=== PATIENT | female | born 1975 | race American Indian/Alaskan Native ===

== ENCOUNTER 2017-10-25 21:24 | Emergency (ER) | payer SELFPAY ==
[2017-10-25] MEDS ORDERED: MOTRIN PO ONE (22:42)
--- NOTE | 2017-10-26 00:30 | Emergency Department Report ---
ED Back Pain/Injury HPI - General Chief Complaint: Extremity Injury, Lower Stated Complaint: RIGHT HIP,LEG PAIN Time Seen by Provider: 10/26/17 00:20 Source: patient, family Mode of arrival: Ambulatory Limitations: No Limitations - History of Present Illness Initial Comments: This is a 41-year-old female here reports that she's been having back pain radiating into her right hip 2 days. She's had similar incident in the past. She denies any injury. Denies any urinary burning, frequency or urgency. Denies any blood in her urine. Denies any nausea or vomiting. Denies any abdominal pain. LMP 10/30/2017. Denies any loss of bowel or bladder function. Denies any numbness or tingling to extremities. Pain is 10/10 achy. No medication taken. Pain is worse with movement and no alleviating factors. Patient has a history of -induced hypertension, and gestational diabetes. MD Complaint: back pain Onset/Timin -: days(s) Similar Symptoms Previously: Yes Place: home Radiation: right leg (right hip, buttocks and leg) Severity: severe Severity scale (0 -10): 10 Quality: aching Consistency: constant Improves With: none Worsens With: movement, walking Context: other (history of back pain) Associated Symptoms: denies: confusion, weakness, chest pain, numbness, difficulty walking, cough, difficulty urinating, diaphoresis, incontinence, fever/chills, constipation, headaches, abdominal pain, loss of appetite, malaise , nausea/vomiting, rash, seizure, shortness of breath, syncope Treatments Prior to Arrival: other (none) - Related Data Home Medications Medication Instructions Recorded Confirmed Last Taken Acetaminophen [Tylenol] 325 mg PO PRN 09/20/13 09/20/13 09/20/13 Previous Rx's Medication Instructions Recorded Last Taken Type Cephalexin [Keflex] 500 mg PO Q6H #40 capsule 09/20/13 Unknown Rx HYDROcodone/APAP 5-325 [Odanah 1 each PO Q6HR PRN #20 tablet 08/18/14 Unknown Rx 5-325 mg TAB] Ibuprofen [Motrin 600 MG tab] 600 mg PO Q8H PRN #20 tablet 08/18/14 Unknown Rx traMADol [Ultram] 50 mg PO Q6HR PRN #20 tablet 10/26/17 Unknown Rx Allergies Allergy/AdvReac Type Severity Reaction Status Date / Time No Known Allergies Allergy Verified 08/18/14 09:54 ED Review of Systems ROS: Stated complaint: RIGHT HIP,LEG PAIN Other details as noted in HPI Constitutional: denies: chills, fever Eyes: denies: eye pain, eye discharge, vision change Respiratory: denies: cough, shortness of breath, SOB with exertion, SOB at rest , wheezing Cardiovascular: denies: chest pain, palpitations, edema, syncope Gastrointestinal: denies: abdominal pain, nausea, vomiting, diarrhea Genitourinary: denies: urgency, dysuria, hematuria, discharge Musculoskeletal: back pain, arthralgia. denies: joint swelling, myalgia Skin: denies: rash, lesions Neurological: denies: headache, weakness, numbness, paresthesias, confusion, abnormal gait, vertigo ED Past Medical Hx - Past Medical History Previous Medical History?: Yes Hx Hypertension: Yes (PIH) Hx Diabetes: Yes (gestational DM) Hx Psychiatric Treatment: Yes (ANXIETY) Additional medical history: denies - Surgical History Past Surgical History?: No Additional Surgical History: denies - Family History Family history: hypertension - Social History Smoking Status: Never Smoker Substance Use Type: None - Medications Home Medications: Home Medications Medication Instructions Recorded Confirmed Last Taken Type Acetaminophen [Tylenol] 325 mg PO PRN 09/20/13 09/20/13 09/20/13 History Cephalexin [Keflex] 500 mg PO Q6H #40 capsule 09/20/13 Unknown Rx HYDROcodone/APAP 5-325 [Odanah 1 each PO Q6HR PRN #20 tablet 08/18/14 Unknown Rx 5-325 mg TAB] Ibuprofen [Motrin 600 MG tab] 600 mg PO Q8H PRN #20 tablet 08/18/14 Unknown Rx traMADol [Ultram] 50 mg PO Q6HR PRN #20 tablet 10/26/17 Unknown Rx ED Physical Exam - General Limitations: No Limitations General appearance: alert, in no apparent distress - Head Head exam: Present: atraumatic, normocephalic, normal inspection - Eye Eye exam: Present: normal appearance, PERRL, EOMI Pupils: Present: normal accommodation - ENT ENT exam: Present: normal exam, normal orophraynx, mucous membranes moist - Neck Neck exam: Present: normal inspection, full ROM, other (no C-spine tenderness). Absent: tenderness, lymphadenopathy - Respiratory Respiratory exam: Present: normal lung sounds bilaterally. Absent: respiratory distress, chest wall tenderness - Cardiovascular Cardiovascular Exam: Present: regular rate, normal rhythm, normal heart sounds. Absent: systolic murmur, diastolic murmur - GI/Abdominal GI/Abdominal exam: Present: soft, normal bowel sounds. Absent: distended, tenderness, rigid, organomegaly, bruit - Extremities Exam Extremities exam: Present: normal inspection, full ROM, normal capillary refill , other (no clubbing, cyanosis or edema. +2 pulses to all extremities and no neurovascular compromise.). Absent: tenderness, pedal edema, joint swelling, calf tenderness - Back Exam Back exam: Present: normal inspection, full ROM, other (ambulates without any difficulties.). Absent: tenderness, CVA tenderness (R), CVA tenderness (L), muscle spasm, paraspinal tenderness, vertebral tenderness, rash noted - Expanded Back Exam Expanded Back exam: Absent: saddle anesthesia Back exam: Negative Straight Leg Raising: Left, Right - Neurological Exam Neurological exam: Present: alert, oriented X3, normal gait, reflexes normal. Absent: motor sensory deficit - Expanded Neurological Exam Expanded Neurological exam: Absent: innattentive, memory loss-remote event, memory loss- recent event, ataxia, receptive aphasia, expressive aphasia, total aphasia, tremor, protecting the airway Patient oriented to: Present: person, place, time Speech: Present: fluid speech Cranial nerves: EOM's Intact: Normal, Gag Reflex: Normal, Tongue Deviation: Normal, Nystagmus: Normal, Facial Sensation: Normal Cerebellar function: Romberg: Normal Upper motor neuron: Pronator Drift: Normal, Sensory Extinction: Normal Sensory exam: Upper Extremity Light Touch: Normal, Upper Extremity Pin Prick: Normal, Upper Extremity Temperature: Normal, UE 2 Point Discrimination: Normal, Lower Extremity Light Touch: Normal, Lower Extremity Pin Prick: Normal Motor strength exam: RUE: 5, LUE: 5, RLE: 5, LLE: 5 Best Eye Response (Gordo): (4) open spontaneously Best Motor Response (Gordo): (6) obeys commands Best Verbal Response (Gordo): (5) oriented [place] Total: 15 - Psychiatric Psychiatric exam: Present: normal affect, normal mood - Skin Skin exam: Present: warm, dry, intact, normal color. Absent: rash ED Course Vital Signs 10/25/17 21:30 Temperature 98.2 F Pulse Rate 91 H Respiratory 18 Rate Blood Pressure 122/79 O2 Sat by Pulse 93 Oximetry - Reevaluation(s) Reevaluation #1: 10/26/17 00:30 Patient received ibuprofen 800 mg in triage her first did not relieve her back pain. I will give her decadron, Toradol and Odanah. Reevaluation #2: 10/26/17 01:13 Patient received Odanah 5/2 tablets by mouth, Toradol 30 mg IM and Decadron 10 mg IM and she voiced relief of pain down to 2 out of 10. ED Medical Decision Making - Lab Data Lab Results 10/26/17 Range/Units Unknown Urine Color Yellow (Yellow) Urine Turbidity Clear (Clear) Urine pH 5.0 (5.0-7.0) Ur Specific [place] 1.027 (1.003-1.030) Urine Protein <15 mg/dl (Negative) mg/dL Urine Glucose (UA) Neg (Negative) mg/dL Urine Ketones Neg (Negative) mg/dL Urine Blood Neg (Negative) Urine Nitrite Neg (Negative) Urine Bilirubin Neg (Negative) Urine Urobilinogen 2.0 (<2.0) mg/dL Ur Leukocyte Esterase Neg (Negative) Urine WBC (Auto) 2.0 (0.0-6.0) /HPF Urine RBC (Auto) 2.0 (0.0-6.0) /HPF U Epithel Cells (Auto) < 1.0 (0-13.0) /HPF Urine Mucus 3+ /HPF - Radiology Data Radiology results: report reviewed X-rays lumbar spine and pelvis dictated by radiologist and report reviewed by myself. See below for details. Patient: CARLOS JACKSON MR#: [id number] : 1975 Acct:[id number] Age/Sex: 41 / F ADM Date: 10/25/17 Loc: ED Attending Dr: Ordering Physician: RIN VILLLEA MD Date of Service: 10/25/17 Procedure(s): XR spine lumbosacral 2-3V Accession Number(s): [id number] cc: RIN VILLELA MD Fluoro Time In Minutes: FINAL REPORT EXAM: XR L-SPINE CLINICAL INDICATIONS: LOWER BACK PAIN FINDINGS: 3 views of the lumbar spine. No prior radiographs. Degenerative changes of the lumbar spine with narrowing of the L4-L5 and L5-S1 intervertebral disc spaces. Degenerative changes of the lower thoracic spine with large anterior osteophytes at T11-T12. No compression deformity. No spondylolisthesis. IMPRESSION: DEGENERATIVE CHANGES OF THE LOWER THORACIC AND LUMBAR SPINE WITH NARROWING OF THE L4-L5 AND L5-S1 INTERVERTEBRAL DISC SPACES. Transcribed By: CHRISTELLE Dictated By: TAMMY HAJI MD Electronically Authenticated By: TAMMY HAJI MD Signed Date/Time: 10/26/1751 DD/ TD/TT: 10/26/1751 Patient: CARLOS JACKSON MR#: [id number] : 1975 Acct:[id number] Age/Sex: 38 / F ADM Date: 08/18/14 Loc: ED Attending Dr: Ordering Physician: GISSELLE RAJPUT MD Date of Service: 08/18/14 Procedure(s): XR pelvis 1 or 2V Accession Number(s): [id number] cc: GISSELLE RAJPUT MD Fluoro Time In Minutes: AP PELVIS: AP view of the pelvis shows normal pelvic contour and soft tissues. The hips are symmetric and within normal limits as are the sacroiliac joints. IMPRESSION: Normal pelvis. Transcribed By: UMM Dictated By: IQRA GILES MD Electronically Authenticated By: IQRA GILES MD Signed Date/Time: 08/18/141599 DD/ 58 TD/TT: 08/18/14 1600 - Medical Decision Making This is a 41-year-old female who reports that she's been having lower back pain with radiation of pain to her right lower extremity. She's had similar incident in the past. Patient has been here in the past for similar incident and she had previous imaging done of thoracic spine and C-spine. Physical findings for normal back and neurological exam. She is able to ambulate without any difficulties. Patient and had x-ray of lumbar spine and pelvis and this was dictated by radiologist. No acute findings per radiology reports. Patient has degenerative changes to lower thoracic and lumbar spine area. Urinalysis with normal findings. Pain is controlled with pain medication. I discussed the patient her results of urinalysis and x-rays and she voiced understanding. Patient was given Decadron 10 mg IM, Toradol 30 mg IM, Odanah 5/55 2 tablets by mouth for lumbar radiculopathy and she voiced relief of pain down to 2/10. Patient with right lumbar radiculopathy, multilevel degenerative disc disease. Educated on diagnosis, treatment plan, x-ray results and laboratory findings she voiced understanding. Referral to [facility] for primary care she does not have a primary care physician and orthopedics doctor follow-up in 2-3 days. patient discharged home in stable condition, vital signs are stable she's afebrile and pain is relieved. She voiced understanding and discharge instruction and treatment plan and that she is to follow-up with orthopedic and [facility] in 2-3 days. Discharged with prescription for Ultram I also discussed with her for symptoms as return and worsens not managed by pain medication to return to the emergency room. - Differential Diagnosis subluxation, fracture, degenerative disc disease, lumbar radiculopathy Critical care attestation.: If time is entered above; I have spent that time in minutes in the direct care of this critically ill patient, excluding procedure time. ED Disposition Clinical Impression: Lumbar radiculopathy, right, Multilevel degenerative disc disease Disposition: - TO HOME OR SELFCARE Is pt being admited?: No Does the pt Need Aspirin: No Condition: Stable Instructions: Lumbar Radiculopathy (ED), Degenerative Disc Disease (ED) Additional Instructions: Follow-up with orthopedic doctor and primary care doctor as instructed and 2-3 days Take Ultram for pain but he is a not drive or operate heavy machinery while taking this medication If his symptoms return, or worsens return to emergency room Prescriptions: traMADol [Ultram] 50 mg PO Q6HR PRN #20 tablet PRN Reason: Pain Referrals: [facility] [Outside] - 2-3 Days IQRA GUTIERREZ MD [Staff Physician] - 2-3 Days Forms: Work/School Release Form(ED)
[2017-10-26] MEDS ORDERED: DECADRON IM STA (00:31)
[2017-10-26] MEDS ORDERED: TORADOL IM ONE (00:31)
[2017-10-26] MEDS ORDERED: NORCO 5/325 PO ONE (00:31)
--- NOTE | 2017-10-26 00:50 | XRay Report ---
FINAL REPORT EXAM: XR RT HIP w/o Contrast CLINICAL INDICATIONS: RT HIP PAIN FINDINGS: AP pelvis and right hip. No prior radiographs. No acute fracture or dislocation. Hips are symmetric in appearance. The joint spaces are preserved. The pubic rami are intact. Sacral foramina are not disrupted. Tiny corticated bony fragment bordering the acetabulum, likely accessory ossicle. IMPRESSION: NORMAL RADIOGRAPHIC APPEARANCE OF THE RIGHT HIP WITH PROBABLE TINY ACCESSORY OSSICLE BORDERING THE ACETABULUM.
--- NOTE | 2017-10-26 00:57 | XRay Report ---
FINAL REPORT EXAM: XR L-SPINE CLINICAL INDICATIONS: LOWER BACK PAIN FINDINGS: 3 views of the lumbar spine. No prior radiographs. Degenerative changes of the lumbar spine with narrowing of the L4-L5 and L5-S1 intervertebral disc spaces. Degenerative changes of the lower thoracic spine with large anterior osteophytes at T11-T12. No compression deformity. No spondylolisthesis. IMPRESSION: DEGENERATIVE CHANGES OF THE LOWER THORACIC AND LUMBAR SPINE WITH NARROWING OF THE L4-L5 AND L5-S1 INTERVERTEBRAL DISC SPACES.
[2017-10-26 01:32] LABS: Bilirubin,Urine NEG (Negative); Blood,Urine NEG (Negative); Color,Urine Yellow (Yellow); Mucus,Urine 3+ /HPF; Protein,Urine <15 mg/dL mg/dL (Negative)
[2017-10-26 02:08] VITALS: BP 122/89
== END 2017-10-26 02:10 | disposition home or self-care (01) ==
LOC: ED 21:24
DX: M51.36 Other intervertebral disc degeneration, lumbar region (principal); M54.16 Radiculopathy, lumbar region; I10 Essential (primary) hypertension; F41.9 Anxiety disorder, unspecified
CPT/HCPCS: 72100; 73502; 81001; 96372; 99283; J1100; J1885

== ENCOUNTER 2019-10-29 11:45 | Emergency (ER) | payer SELFPAY ==
--- NOTE | 2019-10-29 13:09 | Event Note ---
ED Screening Note ED Screening Note: 43-year-old female sent emerge department with a 4-day history of general abdominal pain with no diarrhea no constipation. However she has had some nausea and vomiting. Reports no hemoptysis no hematemesis no hematochezia. And reports some fevers chills and sweats. Pain is worse whenever she sits up stra ight or she bends. This initial assessment/diagnostic orders/clinical plan/treatment(s) is/are subject to change based on patients health status, clinical progression and re- assessment by fellow clinical providers in the ED. Further treatment and workup at subsequent clinical providers discretion. Patient/guardian urged not to elope from the ED as their condition may be serious if not clinically assessed and managed. Initial orders include:
[2019-10-29 13:56] LABS: Basophils % (Auto) 0.6 % (0.0-1.8); Eosinophils % (Auto) 0.1 % (0.0-4.3); Hemoglobin 13.9 gm/dl (10.1-14.3); Lymphocytes # (Auto) 1.2 K/mm3 (1.2-5.4); Lymphocytes % (Auto) 19.5 % (13.4-35.0); Mean Corpuscular HGB Conc 33 % (30-34); Mean Corpuscular Volume 92 fl (79-97); Monocytes # (Auto) 0.6 K/mm3 (0.0-0.8); Platelet Count 176 K/mm3 (140-440); Red Blood Count 4.56 M/mm3 (3.65-5.03); Red Cell Distribution Width 13.9 % (13.2-15.2)
[2019-10-29 14:14] LABS: Alanine Aminotransferase 11 units/L (7-56); Albumin 4.5 g/dL (3.9-5); BUN/Creatinine Ratio 8; Blood Urea Nitrogen 5 mg/dL (7-17); Calcium 9.4 mg/dL (8.4-10.2); Hemolysis Index 7
[2019-10-29 14:26] LABS: Bilirubin,Direct < 0.2 mg/dL (0-0.2)
[2019-10-29] MEDS ORDERED: SODIUM CHLORIDE 0.9% 1000 ML 2,000 ML IV ONE (23:59)
[2019-10-29] MEDS ORDERED: SODIUM CHLORIDE 0.9% 1000 ML 1,000 ML IV ONE (23:59)
[2019-10-29] MEDS ORDERED: ONDANSETRON 4 MG/2 ML INJ IV ONE (23:59)
[2019-10-29] MEDS ORDERED: MORPHINE 4 MG/1 ML INJ IV ONE (23:59)
--- NOTE | 2019-10-30 00:05 | Emergency Department Report ---
ED General Adult HPI - General Chief complaint: Abdominal Pain Stated complaint: BOWEL PAIN/STOMACH PAIN PUI?: No Time Seen by Provider: 10/29/19 23:50 Source: patient, RN notes reviewed Mode of arrival: Ambulatory Limitations: No Limitations - History of Present Illness Initial comments: The patient is a 43-year-old female. She is not known to myself previously. She does not have a local primary care doctor. She has no chronic medical conditions. She presents to the ER with a complaint of bilateral paralumbar and flank pain, that radiates around to the infra-epigastric region, diffuse lower abdominal pain, nausea vomiting, malaise and weakness, lightheadedness. Positive subjective fever. No headache. No chest pain. No shortness of breath. No irritative or obstructive urinary symptoms. No gynecologic discharg e. No extremity weakness and or numbness. She is not sure if she is . She thinks that she is not however. -: Gradual, days(s) Location: back Radiation: abdomen Quality: aching Consistency: constant Improves with: rest Worsens with: movement - Related Data Previous Rx's Medication Instructions Recorded Last Taken Type Acetaminophen [Non-Aspirin Extra 500 mg PO Q6HR PRN #30 tablet 10/30/19 Unknown Rx Strength] Radha Root [Radha] 250 mg PO QID PRN #30 capsule 10/30/19 Unknown Rx Metoclopramide [Reglan] 10 mg PO QID PRN #30 tablet 10/30/19 Unknown Rx Morphine Sulfate [Morphine Sulfate 7.5 mg PO Q6HR PRN #10 tablet 10/30/19 Unknown Rx IR] levoFLOXacin [Levaquin] 750 mg PO QDAY #10 tablet 10/30/19 Unknown Rx Allergies Allergy/AdvReac Type Severity Reaction Status Date / Time No Known Allergies Allergy Verified 02/14/18 15:14 ED Review of Systems ROS: Stated complaint: BOWEL PAIN/STOMACH PAIN Other details as noted in HPI Constitutional: fever, malaise, weakness Eyes: denies: eye discharge ENT: denies: hearing loss Respiratory: denies: cough Cardiovascular: other (Lightheadedness near syncope. However, the patient has not lost consciousness.). denies: chest pain Gastrointestinal: abdominal pain, nausea, vomiting Genitourinary: denies: dysuria Musculoskeletal: back pain Neurological: weakness Hematological/Lymphatic: denies: easy bleeding ED Past Medical Hx - Past Medical History Previous Medical History?: Yes Hx Hypertension: Yes (PIH) Hx Diabetes: Yes (gestational DM) Hx Psychiatric Treatment: Yes (ANXIETY) Additional medical history: denies - Surgical History Past Surgical History?: Yes Additional Surgical History: denies - Social History Smoking Status: Unknown if ever smoked Substance Use Type: None - Medications Home Medications: Home Medications Medication Instructions Recorded Confirmed Last Taken Type Acetaminophen [Non-Aspirin Extra 500 mg PO Q6HR PRN #30 tablet 10/30/19 Unknown Rx Strength] Radha Root [Radha] 250 mg PO QID PRN #30 capsule 10/30/19 Unknown Rx Metoclopramide [Reglan] 10 mg PO QID PRN #30 tablet 10/30/19 Unknown Rx Morphine Sulfate [Morphine Sulfate 7.5 mg PO Q6HR PRN #10 tablet 10/30/19 Unknown Rx IR] levoFLOXacin [Levaquin] 750 mg PO QDAY #10 tablet 10/30/19 Unknown Rx ED Physical Exam - General Limitations: No Limitations General appearance: alert, in no apparent distress - Head Head exam: Present: atraumatic, normocephalic - Eye Eye exam: Present: normal appearance, EOMI. Absent: nystagmus - ENT ENT exam: Present: normal exam, normal orophraynx, mucous membranes moist, normal external ear exam - Neck Neck exam: Present: normal inspection, full ROM. Absent: tenderness, meningismus - Respiratory Respiratory exam: Present: normal lung sounds bilaterally. Absent: respiratory distress - Cardiovascular Cardiovascular Exam: Present: normal rhythm, tachycardia, normal heart sounds. Absent: bradycardia, irregular rhythm, systolic murmur, diastolic murmur, rubs, gallop - GI/Abdominal GI/Abdominal exam: Present: soft, tenderness, normal bowel sounds. Absent: distended, guarding, rebound, rigid, pulsatile mass - External exam: Present: normal external exam, other (chaperoned by MIRI Hernandez) Speculum exam: Present: normal speculum exam. Absent: erythema, vaginal discharge, cervical discharge, vaginal bleeding Bi-manual exam: Present: normal bi-manual exam. Absent: cervical motion tendernes, adnexal tenderness, adnexal mass, uterine enlargement, uterine tenderness - Extremities Exam Extremities exam: Present: normal inspection, full ROM, other (2+ pulses noted in the bilateral upper and lower extremities. There is no palpable cord. negative Homans sign. Muscular compartments are soft. The pelvis is stable.). Absent: pedal edema, calf tenderness - Back Exam Back exam: Present: normal inspection, full ROM, CVA tenderness (R), CVA tenderness (L). Absent: tenderness - Neurological Exam Neurological exam: Present: alert, oriented X3, normal gait, other (No facial droop. Tongue midline. Extraocular movements intact bilaterally. Facial sensation intact to light touch in V1, V2, V3 distribution bilaterally. 5 and a 5 strength in 4 extremities. Sensation intact to light touch in 4 extremities.). Absent: motor sensory deficit - Psychiatric Psychiatric exam: Present: anxious - Skin Skin exam: Present: warm, dry, intact, normal color. Absent: rash ED Course Vital Signs 10/29/19 10/30/19 11:48 01:40 Temperature 98.0 F 98.4 F Pulse Rate 79 Respiratory 20 18 Rate Blood Pressure 146/88 Blood Pressure 138/99 [Left] O2 Sat by Pulse 100 Oximetry - Reevaluation(s) Reevaluation #1: 10/30/19 00:38 Differential diagnosis, including not limited to: Colitis, diverticulitis, appendicitis, pelvic inflammatory disease, pyelonephritis, obstruction, perforated viscus, /ectopic dehydration, orthostasis Assessment and plan: 43-year-old female with back pain abdominal pain, nausea vomiting, history of lightheadedness. Check labs, pelvic exam, urinalysis, test, EKG, treat symptoms, obtain CT scan of the abdomen pelvis, and reassess. Explained plan of care to patient, who verbalized understanding, and who is amenable to this plan of care. Reevaluation #2: 10/30/19 01:24 Patient feels much improved. Gynecologic examination is benign. No cervical motion tenderness. During the exam, I am chaperoned by nurse Power Hernandez Reevaluation #3: 10/30/19 01:43 EKG unremarkable. No active vomiting. Patient feels improved. CT scan abdomen pelvis negative for acute pathology. Gynecologic exam is benign. Urinalysis reviewed and appreciated. I clinically suspect early pyelonephritis. We will treat patient empirically. She will be loaded with ceftriaxone and discharged with antibiotics, pain medicine and nausea medicine. The patient is suitable for trial of outpatient management. Discussed plan of care with patient, who verbalized understanding. ED Medical Decision Making - Lab Data Result diagrams: 10/29/19 13:29 10/29/19 13:29 Vital Signs 10/29/19 11:48 Temperature 98.0 F Respiratory 20 Rate Blood Pressure 146/88 Lab Results 10/29/19 10/29/19 Range/Units 13:29 13:29 WBC 6.2 (4.5-11.0) K/mm3 RBC 4.56 (3.65-5.03) M/mm3 Hgb 13.9 (10.1-14.3) gm/dl Hct 42.0 (30.3-42.9) % MCV 92 (79-97) fl MCH 30 (28-32) pg MCHC 33 (30-34) % RDW 13.9 (13.2-15.2) % Plt Count 176 (140-440) K/mm3 Lymph % (Auto) 19.5 (13.4-35.0) % Ceiba % (Auto) 10.0 H (0.0-7.3) % Eos % (Auto) 0.1 (0.0-4.3) % Baso % (Auto) 0.6 (0.0-1.8) % Lymph # 1.2 (1.2-5.4) K/mm3 Ceiba # 0.6 (0.0-0.8) K/mm3 Eos # 0.0 (0.0-0.4) K/mm3 Baso # 0.0 (0.0-0.1) K/mm3 Seg Neutrophils % 69.8 (40.0-70.0) % Seg Neutrophils # 4.4 (1.8-7.7) K/mm3 Sodium 137 (137-145) mmol/L Potassium 4.4 (3.6-5.0) mmol/L Chloride 100.9 (98-107) mmol/L Carbon Dioxide 25 (22-30) mmol/L Anion Gap 16 mmol/L BUN 5 L (7-17) mg/dL Creatinine 0.6 L (0.7-1.2) mg/dL Estimated GFR > 60 ml/min BUN/Creatinine Ratio 8 % Glucose 95 (65-100) mg/dL Calcium 9.4 (8.4-10.2) mg/dL Total Bilirubin 0.60 (0.1-1.2) mg/dL Direct Bilirubin < 0.2 (0-0.2) mg/dL Indirect Bilirubin 0.4 mg/dL AST 26 (5-40) units/L ALT 11 (7-56) units/L Alkaline Phosphatase 65 (35-129) units/L Total Protein 6.7 (6.3-8.2) g/dL Albumin 4.5 (3.9-5) g/dL Albumin/Globulin Ratio 2.0 % Lipase 14 (13-60) units/L - EKG Data -: EKG Interpreted by Il EKG shows normal: sinus rhythm Rate: normal - EKG Data When compared to previous EKG there are: previous EKG unavailable 10/30/19 01:43 Sinus rhythm, 78 bpm, normal axis, QTC 469 ms, otherwise, low voltage, unremarkable EKG, not a STEMI, there is no prior for comparison. - Radiology Data Radiology results: report reviewed, image reviewed Referring Physician: KATHARINA HARTMAN Patient Name: CARLOS JACKSON Date of : 1975 Sex: Female Report Date: 2019-10-30 Report Status: Finalized Findings [facility] [address] [place] [address] Cat Scan Report Signed Patient: CARLOS JACKSON MR#: [id number] : 1975 Acct:[id number] Age/Sex: 43 / F ADM Date: 10/29/19 Loc: ED Attending Dr: Ordering Physician: KATHARINA HARTMAN MD Date of Service: 10/29/19 Procedure(s): CT abdomen pelvis w con Accession Number(s): [id number] cc: KATHARINA HARTMAN MD CT ABDOMEN AND PELVIS WITH IV CONTRAST INDICATION: MAIN. Acute onset abdominal pain and nausea and vomiting COMPARISON: None available. T ECHNIQUE: Axial CT images were obtained through the abdomen and pelvis after 100 mL IV contrast. All CT scans at this location are performed using CT dose reduction for ALARA by means of automated exposure control. FINDINGS -- ABDOMEN: Lung Bases: No acute abnormality. Liver: Normal. Gallbladder: Normal. Bile Ducts: Normal. Pancreas: Normal. Spleen: Normal. Adrenals: Normal. Right Kidney and Proximal Ureter: Normal. Left Kidney and Proximal Ureter: Normal. Stomach and Bowel: Increased gastric mucosal thickening especially near the distal gastric antrum.. Lymph Nodes: No significant adenopathy. Aorta: No significant abnormality. IVC: Normal. Additional Findings: None. FINDINGS -- PELVIS: Urinary Bladder and Distal Ureters: Normal. Reproductive Organs: No acute abnormality. Appendix: Normal. Bowel: No acute abnormality. Free Fluid: None. Lymph Nodes: No significant adenopathy. Additional Findings: None. Skeletal System: No acute abnormality. IMPRESSION: Question mild gastritis. Otherwise no acute findings identified Signer Name: Wilmer Westbrook MD Signed: 10/30/2019 1:26 AM Workstation Name: [id number] Transcribed By: Dictated By: Wilmer Westbrook MD Electronically Authenticated By: Wilmer Westbrook MD Signed Date/Time: 10/30/19125 DD/ 2 Critical care attestation.: If time is entered above; I have spent that time in minutes in the direct care of this critically ill patient, excluding procedure time. ED Disposition Clinical Impression: Pyelonephritis Disposition: DC-01 TO HOME OR SELFCARE Is pt being admited?: No Does the pt Need Aspirin: No Condition: Stable Instructions: Acute Pyelonephritis (ED) Additional Instructions: Do not consume alcohol. Drink 4 to 6 cups of water per day indefinitely. Avoid consumption of Motrin, ibuprofen, Naprosyn, Aleve. Take the antibiotics, pain medication, nausea medication as directed. Do not drive or operate motor vehicles until symptoms are improved, and patient is cleared or instructed to do so by a primary care doctor. Please follow-up with a physician in 3 to 4 days for a repeat checkup/evaluation. Cultures were sent today, and results will be available in the next 3 to 5 days. Please have a primary care doctor contact the medical records department to obtain culture results. Please return to the emergency room right away with new pain, worsening pain, migration of pain, rectal vomiting, change in mental status, confusion, inability to tolerate liquid feeds, new, worsened or different symptoms not present on the initial emergency room evaluation. Avoid consumption of tobacco, marijuana, cigarettes and smoke products. Do not take metformin medication for the next 2 days, if patient takes this medication. When taking the morphine for pain, do not drive, consume alcohol, or make important decisions. Referrals: SARMAD RANDLE MD [Staff Physician] - 3-5 Days [facility] [Provider Group] - 3-5 Days
[2019-10-30] MEDS ORDERED: HYDROmorphone 1 MG/1 ML INJ IV ONE (01:06)
[2019-10-30] MEDS ORDERED: METOCLOPRAMIDE 10 MG/2 ML INJ IV ONE (01:06)
[2019-10-30 01:28] LABS: Bilirubin,Urine NEG (Negative); Blood,Urine NEG (Negative); Color,Urine Yellow (Yellow); Mucus,Urine 3+ /HPF
--- NOTE | 2019-10-30 01:31 | Cat Scan Report ---
CT ABDOMEN AND PELVIS WITH IV CONTRAST INDICATION: MAIN. Acute onset abdominal pain and nausea and vomiting COMPARISON: None available. TECHNIQUE: Axial CT images were obtained through the abdomen and pelvis after 100 mL IV contrast. All CT scans a t this location are performed using CT dose reduction for ALARA by means of automated exposure contro l. FINDINGS -- ABDOMEN: Lung Bases: No acute abnormality. Liver: Normal. Gallbladder: Normal. Bile Ducts: Normal. Pancreas: Normal. Spleen: Normal. Adrenals: Normal. Right Kidney and Proximal Ureter: Normal. Left Kidney and Proximal Ureter: Normal. Stomach and Bowel: Increased gastric mucosal thickening especially near the distal gastric antrum.. Lymph Nodes: No significant adenopathy. Aorta: No significant abnormality. IVC: Normal. Additional Findings: None. FINDINGS -- PELVIS: Urinary Bladder and Distal Ureters: Normal. Reproductive Organs: No acute abnormality. Appendix: Normal. Bowel: No acute abnormality. Free Fluid: None. Lymph Nodes: No significant adenopathy. Additional Findings: None. Skeletal System: No acute abnormality. IMPRESSION: Question mild gastritis. Otherwise no acute findings identified Signer Name: Wilmer Westbrook MD Signed: 10/30/2019 1:26 AM Workstation Name: [id number]
[2019-10-30] MEDS ORDERED: cefTRIAXone/NS 1 GM/50 ML 1 GM/50 ML BAG IV ONE (01:37)
[2019-10-30 01:42] VITALS: BP 138/99
== END 2019-10-30 02:00 | disposition home or self-care (01) ==
LOC: ED 13:04
DX: N12 Tubulo-interstitial nephritis, not specified as acute or chronic (principal); R11.2 Nausea with vomiting, unspecified; I10 Essential (primary) hypertension; E11.9 Type 2 diabetes mellitus without complications; F41.9 Anxiety disorder, unspecified; Z79.2 Long term (current) use of antibiotics; Z79.899 Other long term (current) drug therapy
CPT/HCPCS: 36415; 74177; 80048; 80076; 81001; 82550; 83690; 83735; 84702; 85025; 87210; 87591; 93005; 96361; 96374; 96375; 99285; J0696; J1170; J2270; J2405; J2765; J7030; Q9967

== ENCOUNTER 2021-09-14 12:25 | Emergency (ER) | payer OTHER ==
[2021-09-14 13:22] VITALS: BP 118/88
--- NOTE | 2021-09-14 18:41 | Emergency Department Report ---
ED Recheck HPI - General Chief Complaint: Pain General Stated Complaint: LOWER BACK PAIN/ABD PAIN Time Seen by Provider: 09/14/21 18:38 Source: patient Mode of arrival: Ambulatory Limitations: No Limitations - History of Present Illness Initial Comments: This is a 45-year-old -Citizen Of The [place] female who presents to the emergency room for medication refill. Past medical history of lumbar degenerative disc disease. Patient states she is followed by Dr. Galvan and ran out of medication. Patient states she has a scheduled appointment for next Friday. Patient states she is currently having left lower back pain that is radiating down left leg. She ran out of meloxicam and Zanaflex. Denies recent injury, abdominal pain, nausea, numbness or tingling, weakness, change in urinary or bowel pattern. MD Complaint: medication refill request Returns Today for: request for prescription - Related Data Previous Rx's Medication Instructions Recorded Last Taken Type Acetaminophen [Non-Aspirin Extra 500 mg PO Q6HR PRN #30 tablet 10/30/19 Unknown Rx Strength] Radha Root [Radha] 250 mg PO QID PRN #30 capsule 10/30/19 Unknown Rx Metoclopramide [Reglan] 10 mg PO QID PRN #30 tablet 10/30/19 Unknown Rx Morphine Sulfate [Morphine Sulfate 7.5 mg PO Q6HR PRN #10 tablet 10/30/19 Unknown Rx IR] levoFLOXacin [Levaquin] 750 mg PO QDAY #10 tablet 10/30/19 Unknown Rx Meloxicam/Irrit.cntr-Irr Cmb 2 15 mg PO QDAY #1 kit 09/14/21 Unknown Rx [Comfort Pac-Meloxicam Kit] tiZANidine [Zanaflex 4mg TAB] 4 mg PO TID PRN #20 tab 09/14/21 Unknown Rx Allergies Allergy/AdvReac Type Severity Reaction Status Date / Time No Known Allergies Allergy Verified 09/14/21 13:22 ED Review of Systems ROS: Stated complaint: LOWER BACK PAIN/ABD PAIN Other details as noted in HPI Constitutional: denies: chills, fever Respiratory: denies: cough, shortness of breath, wheezing Cardiovascular: denies: chest pain, palpitations Gastrointestinal: denies: abdominal pain, nausea, diarrhea Musculoskeletal: back pain. denies: joint swelling, arthralgia Skin: denies: rash, lesions Neurological: denies: headache, weakness, paresthesias Psychiatric: denies: anxiety, depression ED Past Medical Hx - Past Medical History Previous Medical History?: Yes Hx Hypertension: Yes (PIH) Hx Diabetes: Yes (gestational DM) Hx Psychiatric Treatment: Yes (ANXIETY) Additional medical history: denies - Surgical History Additional Surgical History: denies - Social History Smoking Status: Unknown if ever smoked Substance Use Type: None - Medications Home Medications: Home Medications Medication Instructions Recorded Confirmed Last Taken Type Acetaminophen [Non-Aspirin Extra 500 mg PO Q6HR PRN #30 tablet 10/30/19 Unknown Rx Strength] Radha Root [Radha] 250 mg PO QID PRN #30 capsule 10/30/19 Unknown Rx Metoclopramide [Reglan] 10 mg PO QID PRN #30 tablet 10/30/19 Unknown Rx Morphine Sulfate [Morphine Sulfate 7.5 mg PO Q6HR PRN #10 tablet 10/30/19 Unknown Rx IR] levoFLOXacin [Levaquin] 750 mg PO QDAY #10 tablet 10/30/19 Unknown Rx Meloxicam/Irrit.cntr-Irr Cmb 2 15 mg PO QDAY #1 kit 09/14/21 Unknown Rx [Comfort Pac-Meloxicam Kit] tiZANidine [Zanaflex 4mg TAB] 4 mg PO TID PRN #20 tab 09/14/21 Unknown Rx ED Physical Exam - General Limitations: No Limitations General appearance: alert, in no apparent distress - Neck Neck exam: Present: normal inspection - Respiratory Respiratory exam: Present: normal lung sounds bilaterally. Absent: respiratory distress - Cardiovascular Cardiovascular Exam: Present: regular rate, normal rhythm. Absent: systolic murmur, diastolic murmur, rubs, gallop - GI/Abdominal GI/Abdominal exam: Present: soft, normal bowel sounds - Extremities Exam Extremities exam: Present: normal inspection - Back Exam Back exam: Present: normal inspection, full ROM, paraspinal tenderness (Left lumbar paraspinal tenderness, no midline tenderness, no saddle paresthesia, positive left straight leg test). Absent: muscle spasm, rash noted - Neurological Exam Neurological exam: Present: alert, oriented X3, normal gait - Psychiatric Psychiatric exam: Present: normal affect, normal mood - Skin Skin exam: Present: warm, dry, intact, normal color. Absent: rash ED Course Vital Signs 09/14/21 13:20 Temperature 98.6 F Pulse Rate 100 H Respiratory 14 Rate Blood Pressure 118/88 O2 Sat by Pulse 96 Oximetry ED Recheck MDM - Differential Diagnosis Prescription Refill(s) - Medical Decision Making 45-year-old female presents with acute on chronic low back pain, requesting medication refills. Vitals stable. No acute signs of distress. No back pain red flags on history or physical. Past medical history of lumbar degenerative disc disease. Presentation not consistent with malignancy, fracture, cauda equina, or AAA. Imaging deferred at this time. Refilled meloxicam and Zanaflex. Patient discharged home stable. Critical care attestation.: If time is entered above; I have spent that time in minutes in the direct care of this critically ill patient, excluding procedure time. ED Disposition Clinical Impression: Medication refill Back pain Qualifiers: Back pain location: low back pain Chronicity: chronic Back pain laterality: left Sciatica presence: with sciatica Sciatica laterality: sciatica of left side Qualified Code(s): M54.42 - Lumbago with sciatica, left side; G89.29 - Other chronic pain Disposition: 01 HOME / SELF CARE / HOMELESS Is pt being admited?: No Condition: Stable Prescriptions: Meloxicam/Irrit.cntr-Irr Cmb 2 [Comfort Pac-Meloxicam Kit] 15 mg PO QDAY #1 kit tiZANidine [Zanaflex 4mg TAB] 4 mg PO TID PRN #20 tab PRN Reason: Pain , Severe (7-10) Referrals: SARMAD RANDLE MD [Staff Physician] - 3-5 Days Forms: Work/School Release Form(ED) Time of Disposition: 18:57
== END 2021-09-14 19:00 | disposition home or self-care (01) ==
LOC: ED 12:25
DX: M54.50 Low back pain, unspecified (principal); Z76.0 Encounter for issue of repeat prescription; I10 Essential (primary) hypertension; E11.9 Type 2 diabetes mellitus without complications; F41.9 Anxiety disorder, unspecified; Z79.899 Other long term (current) drug therapy
CPT/HCPCS: 99282